=== PATIENT | female | born 1960 | race Two or more races ===

== ENCOUNTER 2022-09-03 09:16 | Emergency (ER) | payer OTHER ==
[~2022-09-03] VITALS: Ht 162.6 cm; Wt 82.6 kg
[2022-09-03] MEDS ORDERED: COZAAR100 MG PO (09:38)
[2022-09-03] MEDS ORDERED: ATORVASTATIN CA10 MG PO (09:39)
[2022-09-03] MEDS ORDERED: HYDROCHLOROTHIA25 MG PO (09:40)
== END 2022-09-03 15:20 | disposition home or self-care (01) ==
LOC: ER 09:16
DX: I10 Essential (primary) hypertension (principal); R50.9 Fever, unspecified; M25.551 Pain in right hip; R53.81 Other malaise; Z20.822 Contact with and (suspected) exposure to COVID-19